=== PATIENT | female | born 1965 | race Caucasian/White ===

== ENCOUNTER 2020-08-15 09:38 | Inpatient (IN) | payer BC, OTHER ==
[~2020-08-15] VITALS: Ht 160 cm; Wt 99.8 kg
[~2020-08-15 09:38] MED LIST: ASPIRIN81 MG PO; ATENOLOL50 MG PO; Aspirin PO; BP MED PO; OXYCODON-ACETA1 EAC2 PO; PREVACID15 MG PO; SPIRONOLACTONE50 MG PO
[2020-08-15] MEDS ORDERED: ONDANSETRON HCL INJ 2MG/ML 2ML 2 MG/ML VIAL IV NR (10:00)
[2020-08-15] MEDS ORDERED: MORPHINE SULFATE INJ 4 MG/ML INJ 1ML IV NR (10:00)
[2020-08-15] MEDS ORDERED: CLOPIDOGREL BISULFATE 75 MG TAB PO NR (10:00)
[2020-08-15] MEDS ORDERED: HEPARIN SOD (PORCINE) 5,000 UNIT/ML VIAL IV NR ×2 (10:00)
[2020-08-15 10:10] LABS: BASOPHILS # (AUTO) 0.1 (0.0-0.1); BASOPHILS % 0.5 % (0.0-1.0); EOSINOPHILS # (AUTO) 0.3 (0.0-0.4); EOSINOPHILS % 3.1 % (0.0-6.0); HEMATOCRIT 42.5 % (34.2-44.1); HEMOGLOBIN 14.5 g/dL (12.0-16.0); LYMPHOCYTES # (AUTO) 2.9 (1.0-3.2); LYMPHOCYTES % 31.4 % (18.0-39.1); MEAN CORPUSCULAR HEMOGLOBIN 30.9 pg (28-32); MEAN CORPUSCULAR HGB CONC 34.1 g/dL (31-35); MEAN CORPUSCULAR VOLUME 90.6 fL (81-99); MONOCYTES # (AUTO) 0.5 (0.2-0.8); MONOCYTES % 5.6 % (4.4-11.3); NEUTROPHILS # (AUTO) 5.4 (2.1-6.9); NEUTROPHILS % 59.1 % (38.7-80.0); PLATELET COUNT 275 x10e3/uL (140-360); RED BLOOD COUNT 4.69 x10e6/uL (3.6-5.1); RED CELL DISTRIBUTION WIDTH 13.1 % (11.7-14.4)
[2020-08-15] MEDS: HEPARIN 25,000 UNIT 900 UNIT in DEXTROSE 5% 250ML 250 ML IV SCH (10:24)
[2020-08-15 10:28] LABS: INR 0.8; PROTHROMBIN TIME 11.6 seconds (11.9-14.5)
[2020-08-15 10:29] LABS: ALANINE AMINOTRANSFERASE 53 IU/L (0-55); ALBUMIN 3.8 g/dL (3.5-5.0); ALBUMIN/GLOBULIN RATIO 1.1 (0.8-2.0); ALKALINE PHOSPHATASE 126 IU/L (40-150); ANION GAP 15.8 mmol/L (8-16); BLOOD UREA NITROGEN 12 mg/dL (7-26); BUN/CREATININE RATIO 14 (6-25); CALCIUM 9.5 mg/dL (8.4-10.2); CARBON DIOXIDE 22 mmol/L (22-29); CHLORIDE 104 mmol/L (98-107); CREATINE KINASE 61 IU/L (29-168); CREATININE, SERUM 0.87 mg/dL (0.57-1.11); EST GLOMERULAR FILTRATION RATE > 60 ML/MIN (60-); GLUCOSE 219 mg/dL (74-118); MAGNESIUM 1.8 MG/DL (1.3-2.1); PARTIAL THROMBOPLASTIN TIME 24.9 seconds (23.8-35.5); POTASSIUM 3.8 mmol/L (3.5-5.1); SODIUM 138 mmol/L (136-145)
[2020-08-15] MEDS ORDERED: NITROGLYCERIN 0.4 MG SUBL SL PRN (12:00)
[2020-08-15] MEDS ORDERED: IOPAMIDOL 370 MG/ML 200 ML INFUS..BTL INJ ONE (12:18)
[2020-08-15] MEDS ORDERED: SODIUM CHLORIDE 0.9% 50ML 50 ML ONE (12:18)
[2020-08-15] MEDS: FAMOTIDINE 20 MG/2 ML VIAL IV SCH (12:49)
[2020-08-15 13:48] VITALS: BP 117/78
[2020-08-15] MEDS: ONDANSETRON HCL INJ 2MG/ML 2ML 2 MG/ML VIAL IV PRN ×3 (14:08→21:00)
[2020-08-15] MEDS: MORPHINE SULFATE INJ 2 MG/ML SYR IV PRN ×4 (14:08→23:50)
[2020-08-15] MEDS ORDERED: ASPIRIN81 MG PO (14:35)
[2020-08-15] MEDS ORDERED: MONTELUKAST SOD10 MG PO (14:37)
[2020-08-15] MEDS: SODIUM CHLORIDE 0.9% 1000ML 1,000 ML IV SCH (15:44)
[2020-08-15] MEDS ORDERED: DEXTROSE 50% SYRINGE 50 ML IV PRN (15:45)
[2020-08-15] MEDS: INSULIN LISPRO 100 UNIT/1 ML 3ML VIAL SQ SCH ×2 (16:51→21:00)
[2020-08-15 17:08] LABS: CREATINE KINASE MB 8.9 ng/mL (0-5.0)
[2020-08-15 20:00] VITALS: BP 142/80
[2020-08-15 21:00] VITALS: BP 142/80
[2020-08-16] VITALS (17 sets, daily range): BP systolic 121–164; BP diastolic 59–97
[2020-08-16] MEDS: FAMOTIDINE 20 MG/2 ML VIAL IV SCH ×3 (00:03→23:19)
[2020-08-16] MEDS: SODIUM CHLORIDE 0.9% 1000ML 1,000 ML IV SCH ×2 (01:42→08:42)
[2020-08-16] MEDS: ONDANSETRON HCL INJ 2MG/ML 2ML 2 MG/ML VIAL IV PRN (02:55)
[2020-08-16] MEDS: MORPHINE SULFATE INJ 2 MG/ML SYR IV PRN ×2 (02:55→21:52)
[2020-08-16 05:45] LABS: BASOPHILS # (AUTO) 0.1 (0.0-0.1); BASOPHILS % 0.8 % (0.0-1.0); EOSINOPHILS # (AUTO) 0.2 (0.0-0.4); EOSINOPHILS % 2.6 % (0.0-6.0); HEMOGLOBIN 12.9 g/dL (12.0-16.0); LYMPHOCYTES # (AUTO) 3.3 (1.0-3.2); LYMPHOCYTES % 42.3 % (18.0-39.1); MEAN CORPUSCULAR HEMOGLOBIN 30.7 pg (28-32); MEAN CORPUSCULAR HGB CONC 33.9 g/dL (31-35); MEAN CORPUSCULAR VOLUME 90.5 fL (81-99); MONOCYTES # (AUTO) 0.5 (0.2-0.8); MONOCYTES % 6.1 % (4.4-11.3); NEUTROPHILS # (AUTO) 3.7 (2.1-6.9); NEUTROPHILS % 47.9 % (38.7-80.0); PLATELET COUNT 229 x10e3/uL (140-360); RED CELL DISTRIBUTION WIDTH 13.2 % (11.7-14.4)
[2020-08-16 06:15] LABS: ALANINE AMINOTRANSFERASE 61 IU/L (0-55); ALBUMIN 3.1 g/dL (3.5-5.0); ALKALINE PHOSPHATASE 109 IU/L (40-150); ANION GAP 14.9 mmol/L (8-16); BLOOD UREA NITROGEN 10 mg/dL (7-26); BUN/CREATININE RATIO 13 (6-25); CALCIUM 8.3 mg/dL (8.4-10.2); CARBON DIOXIDE 22 mmol/L (22-29); CHLORIDE 108 mmol/L (98-107); CHOL/HDL RATIO 4.3 (3.0-3.6); CHOLESTEROL 184 MD/DL (0-199); CREATININE, SERUM 0.79 mg/dL (0.57-1.11); EST GLOMERULAR FILTRATION RATE > 60 ML/MIN (60-); GLUCOSE 160 mg/dL (74-118); HDL CHOLESTEROL 43 MG/DL (40-60); LDL CHOLESTEROL 98 MG/DL (60-130); POTASSIUM 3.9 mmol/L (3.5-5.1); SODIUM 141 mmol/L (136-145); TRIGLYCERIDES 215 MG/DL (0-149)
[2020-08-16 06:48] LABS: CREATINE KINASE MB 69.2 ng/mL (0-5.0)
[2020-08-16] MEDS: INSULIN LISPRO 100 UNIT/1 ML 3ML VIAL SQ SCH ×4 (07:30→21:43)
[2020-08-16] MEDS: ASPIRIN 81 MG ENTERIC COATED PO SCH (08:42)
[2020-08-16] MEDS: CLOPIDOGREL BISULFATE 75 MG TAB PO SCH (08:42)
[2020-08-16] MEDS: HEPARIN 25,000 UNIT 900 UNIT in DEXTROSE 5% 250ML 250 ML IV SCH (09:54)
[2020-08-16] MEDS ORDERED: DIPHENHYDRAMINE HCL 25 MG CAP PO ONE (11:15)
[2020-08-16] MEDS ORDERED: LORAZEPAM 1 MG TAB PO ONE (11:15)
[2020-08-16] MEDS ORDERED: FENTANYL CITRATE/PF 100MCG/2 ML INJ ONE ×2 (11:55→12:58)
[2020-08-16] MEDS ORDERED: SODIUM CHLORIDE 0.9% 1000ML 1,000 ML ONE (11:55)
[2020-08-16] MEDS ORDERED: MIDAZOLAM HCL 2 MG/2 ML VIAL ONE ×2 (11:55→12:58)
[2020-08-16] MEDS ORDERED: LIDOCAINE HCL 2% LOCAL 20 ML VIAL ONE (11:55)
[2020-08-16] MEDS ORDERED: IOPAMIDOL 370 MG/ML 200 ML INFUS..BTL INJ ONE (11:55)
[2020-08-16] MEDS ORDERED: HEPARIN SOD/SOD CHLORIDE 2,000 ML ONE (11:55)
[2020-08-16] MEDS ORDERED: ATORVASTATIN 20 MG TAB PO SCH (21:00)
[2020-08-16] MEDS: DOCUSATE SODIUM 100 MG CAP PO SCH (23:19)
[2020-08-17] VITALS: BP 130/85
[2020-08-17] MEDS: SODIUM CHLORIDE 0.9% 1000ML 1,000 ML IV SCH ×2 (01:55→04:00)
[2020-08-17 04:00] VITALS: BP 136/82
[2020-08-17 08:15] VITALS: BP 129/57
[2020-08-17 08:41] VITALS: BP 129/57
[2020-08-17] MEDS ORDERED: POLYETHYLENE GLYCOL 3350 17 GM PACK PO SCH (09:00)
[2020-08-17] MEDS: DOCUSATE SODIUM 100 MG CAP PO SCH (09:04)
[2020-08-17] MEDS: CLOPIDOGREL BISULFATE 75 MG TAB PO SCH (09:04)
[2020-08-17] MEDS: ASPIRIN 81 MG ENTERIC COATED PO SCH (09:04)
[2020-08-17] MEDS: INSULIN LISPRO 100 UNIT/1 ML 3ML VIAL SQ SCH ×2 (09:15→12:26)
[2020-08-17] MEDS ORDERED: LIPITOR20 MG PO (10:10)
[2020-08-17] MEDS ORDERED: NITROSTAT0.4 MG SL (10:10)
[2020-08-17] MEDS ORDERED: PLAVIX75 MG PO (10:10)
[2020-08-17 11:52] VITALS: BP 129/37
[2020-08-17] MEDS: FAMOTIDINE 20 MG/2 ML VIAL IV SCH (12:08)
== END 2020-08-17 12:45 | disposition home or self-care (01) | DRG 247 ==
LOC: ER 09:43 → ERHOLD 12:03 → MED/SURG 13:40
PROVIDERS: ADMIT Internal Medicine; ATTEND Internal Medicine
PROC: 4A023N7 Measurement of Cardiac Sampling and Pressure, Left Heart, Percutaneous Approach (ICD-10-PCS; principal; 2020-08-16)
PROC: B2111ZZ Fluoroscopy of Multiple Coronary Arteries using Low Osmolar Contrast (ICD-10-PCS; 2020-08-16)
PROC: B2151ZZ Fluoroscopy of Left Heart using Low Osmolar Contrast (ICD-10-PCS; 2020-08-16)
PROC: 027034Z Dilation of Coronary Artery, One Artery with Drug-eluting Intraluminal Device, Percutaneous Approach (ICD-10-PCS; 2020-08-16)
DX: I21.4 Non-ST elevation (NSTEMI) myocardial infarction (principal); E11.22 Type 2 diabetes mellitus with diabetic chronic kidney disease; Z20.822 Contact with and (suspected) exposure to COVID-19; F17.210 Nicotine dependence, cigarettes, uncomplicated; E78.5 Hyperlipidemia, unspecified; M16.11 Unilateral primary osteoarthritis, right hip; E66.9 Obesity, unspecified; Z68.39 Body mass index [BMI] 39.0-39.9, adult; I25.2 Old myocardial infarction; E66.8 Other obesity; I25.10 Atherosclerotic heart disease of native coronary artery without angina pectoris; F17.200 Nicotine dependence, unspecified, uncomplicated
CPT/HCPCS: 36415; 71045; 71260; 80053; 80061; 81025; 82550; 82553; 82948; 83036; 83735; 83880; 84484; 85025; 85610; 85730; 92928; 93005; 93306; 93458; 96372; 99152; 99153; 99284; C1725; C1769; C1874; C1894; J1644; J2001; J2250; J2270; J2405; J3010; J7030; Q9967; U0002